=== PATIENT | female | born 1990 ===

== ENCOUNTER 2021-03-13 07:31 | Inpatient (IN) | payer OTHER ==
[~2021-03-13] VITALS: Ht 162.6 cm; Wt 83.9 kg
[2021-03-13] MEDS ORDERED: PRENATA CHEWAB1 EACH PO (09:22)
== END 2021-03-15 19:24 | disposition home or self-care (01) | DRG 807 ==
LOC: LDR 07:31 → OB/GYN 07:31
PROVIDERS: ADMIT Obstetrics & Gynecology; ATTEND Obstetrics & Gynecology
PROC: 10E0XZZ Delivery of Products of Conception, External Approach (ICD-10-PCS; principal; 2021-03-13)
PROC: 4A1HXFZ Monitoring of Products of Conception, Cardiac Rhythm, External Approach (ICD-10-PCS; 2021-03-13)
DX: O80 Encounter for full-term uncomplicated delivery (principal); Z37.0 Single live birth; Z3A.39 39 weeks gestation of pregnancy